=== PATIENT | male | born 1990 | race Two or more races ===

== ENCOUNTER 2017-06-26 04:31 | Emergency (ER) | payer MEDICAID ==
[~2017-06-26] VITALS: Ht 172.7 cm; Wt 63.5 kg
[2017-06-26] MEDS ORDERED: KETOROLAC TROMETH 60MG/2ML VIAL IM ONE (07:30)
[2017-06-26 08:04] VITALS: BP 106/66
== END 2017-06-26 08:10 | disposition home or self-care (01) ==
LOC: ER 04:31
DX: M54.5 Low back pain (principal); M54.2 Cervicalgia; M54.6 Pain in thoracic spine; M79.1 Myalgia; G89.29 Other chronic pain; F17.210 Nicotine dependence, cigarettes, uncomplicated; Z88.0 Allergy status to penicillin
CPT/HCPCS: 96372; 99283; J1885

== ENCOUNTER 2017-06-27 07:52 | Emergency (ER) | payer MEDICAID ==
[~2017-06-27] VITALS: Ht 172.7 cm; Wt 63.5 kg
[2017-06-27 08:00] VITALS: BP 112/59
== END 2017-06-27 09:30 | disposition home or self-care (01) ==
LOC: ER 07:55
DX: S61.411A Laceration without foreign body of right hand, initial encounter (principal); F17.210 Nicotine dependence, cigarettes, uncomplicated; W45.8XXA Other foreign body or object entering through skin, initial encounter; Y93.89 Activity, other specified; Y92.89 Other specified places as the place of occurrence of the external cause; Y99.8 Other external cause status

== ENCOUNTER 2018-02-22 08:36 | Emergency (ER) | payer MEDICAID ==
[~2018-02-22] VITALS: Ht 172.7 cm; Wt 70.3 kg
[2018-02-22 08:45] VITALS: BP 127/67
[2018-02-22] MEDS ORDERED: methylPREDNISolone SOD SUCC 125 MG/2 ML VL IM ONE (09:15)
== END 2018-02-22 09:49 | disposition home or self-care (01) ==
LOC: ER 08:37
DX: R21 Rash and other nonspecific skin eruption (principal); F17.210 Nicotine dependence, cigarettes, uncomplicated; F15.10 Other stimulant abuse, uncomplicated; Z88.0 Allergy status to penicillin
CPT/HCPCS: 96372; 99283; J2930

== ENCOUNTER 2018-02-28 02:37 | Emergency (ER) | payer MEDICAID ==
[~2018-02-28] VITALS: Ht 172.7 cm; Wt 65.8 kg
[2018-02-28 02:49] VITALS: BP 107/42
[2018-02-28] MEDS ORDERED: TETANUS-DIPTH-ACEL PERTUSSIS 0.5ML SYRG IM ONE (03:45)
== END 2018-02-28 03:57 | disposition home or self-care (01) ==
LOC: ER 02:38
DX: S60.312A Abrasion of left thumb, initial encounter (principal); W22.8XXA Striking against or struck by other objects, initial encounter; Y93.89 Activity, other specified; Y99.8 Other external cause status; Y92.89 Other specified places as the place of occurrence of the external cause
CPT/HCPCS: 90471; 90715

== ENCOUNTER 2018-03-27 10:49 | Emergency (ER) | payer MEDICAID ==
[~2018-03-27] VITALS: Ht 172.7 cm; Wt 74.8 kg
[2018-03-27 13:25] VITALS: BP 112/66
== END 2018-03-27 14:17 | disposition home or self-care (01) ==
LOC: ER 10:51
DX: J02.9 Acute pharyngitis, unspecified (principal); R21 Rash and other nonspecific skin eruption
CPT/HCPCS: 71046

== ENCOUNTER 2019-02-18 17:55 | Emergency (ER) | payer SELFPAY ==
[~2019-02-18] VITALS: Ht 172.7 cm; Wt 68.0 kg
[2019-02-18 19:00] VITALS: BP 138/75
[2019-02-18] MEDS ORDERED: TETANUS-DIPTH-ACEL PERTUSSIS 0.5ML SYRG IM ONE (21:45)
== END 2019-02-18 22:30 | disposition home or self-care (01) ==
LOC: ER 17:55
DX: S91.332A Puncture wound without foreign body, left foot, initial encounter (principal); S91.331A Puncture wound without foreign body, right foot, initial encounter; Z88.0 Allergy status to penicillin; W45.0XXA Nail entering through skin, initial encounter; Y93.89 Activity, other specified; Y92.89 Other specified places as the place of occurrence of the external cause; Y99.8 Other external cause status
CPT/HCPCS: 90471; 90715

== ENCOUNTER 2019-08-13 22:28 | Emergency (ER) | payer SELFPAY ==
[~2019-08-13] VITALS: Ht 172.7 cm; Wt 59.0 kg
[2019-08-13 22:53] VITALS: BP 113/62
== END 2019-08-14 02:24 | disposition left against medical advice (07) ==
LOC: ER 22:28
DX: J34.89 Other specified disorders of nose and nasal sinuses (principal); Z53.21 Procedure and treatment not carried out due to patient leaving prior to being seen by health care provider

== ENCOUNTER 2020-02-10 10:24 | Emergency (ER) | payer MEDICAID, OTHER ==
[~2020-02-10] VITALS: Ht 172.7 cm; Wt 63.5 kg
[2020-02-10 10:50] VITALS: BP 117/74
== END 2020-02-10 12:55 | disposition home or self-care (01) ==
LOC: ER 10:24
DX: L03.114 Cellulitis of left upper limb (principal); F17.210 Nicotine dependence, cigarettes, uncomplicated; Z88.0 Allergy status to penicillin

== ENCOUNTER 2020-03-29 16:33 | Emergency (ER) | payer OTHER ==
[~2020-03-29] VITALS: Ht 172.7 cm; Wt 63.5 kg
[2020-03-29 18:42] LABS: Basophils # (auto) 0 10 ^3/uL (0-0.2); Basophils % (auto) 0.4 % (0.0-2.0); Eosinophils # (auto) 0.1 10 ^3/uL (0-0.8); Eosinophils % (auto) 0.9 % (0.0-7.0); Hematocrit 43.7 % (41.0-53.0); Lymphocytes # (auto) 1.4 10 ^3/uL (0.4-5.4); Lymphocytes % (auto) 14.9 % (10.0-50.0); Mean Corpuscular Hemoglobin 31.1 pg (28.0-32.0); Mean Corpuscular Hgb Conc. 34.3 g/dL (32.0-36.0); Mean Corpuscular Volume 90.7 fL (80.0-100.0); Monocytes # (auto) 0.6 10 ^3/uL (0-1.3); Monocytes % (auto) 6.1 % (0.0-12.0); Neutrophils # (auto) 7.1 10 ^3/uL (1.6-8.6); Neutrophils % (auto) 77.7 % (37.0-80.0); Nucleated Red Blood Cells % 0.1 %; Platelet Count (auto) 205 10^3/uL (140-450); Red Blood Cells 4.81 10^6/uL (4.5-5.90); Red Cell Distribution Width 13.1 % (11.8-14.3); White Blood Cell 9.1 10^3/uL (4.4-10.8)
[2020-03-29 18:58] LABS: Albumin 3.9 g/dL (3.4-5.0); Calcium 8.9 mg/dL (8.5-10.1)
[2020-03-29 19:00] LABS: BUN/Creatinine Ratio 14.1
[2020-03-29 19:03] LABS: Bilirubin, Total 0.7 mg/dL (0.2-1.0); Total Protein 7.4 g/dL (6.4-8.2)
[2020-03-29 19:38] VITALS: BP 102/60
[2020-03-29] MEDS ORDERED: ONDANSETRON ODT 4 MG TAB PO ONE (20:00)
== END 2020-03-29 19:45 | disposition home or self-care (01) ==
LOC: ER 16:33
DX: K52.9 Noninfective gastroenteritis and colitis, unspecified (principal); F19.10 Other psychoactive substance abuse, uncomplicated; F17.210 Nicotine dependence, cigarettes, uncomplicated; F12.10 Cannabis abuse, uncomplicated; F15.10 Other stimulant abuse, uncomplicated; Z88.0 Allergy status to penicillin
CPT/HCPCS: 36415; 80053; 80320; 85025

== ENCOUNTER 2020-05-21 01:28 | Emergency (ER) | payer OTHER ==
[~2020-05-21] VITALS: Ht 172.7 cm; Wt 65.8 kg
[2020-05-21 06:12] VITALS: BP 140/76
== END 2020-05-21 06:39 | disposition home or self-care (01) ==
LOC: ER 01:30
DX: S70.921D Unspecified superficial injury of right thigh, subsequent encounter (principal); F15.10 Other stimulant abuse, uncomplicated; F12.10 Cannabis abuse, uncomplicated; F17.200 Nicotine dependence, unspecified, uncomplicated; F17.210 Nicotine dependence, cigarettes, uncomplicated; Z48.01 Encounter for change or removal of surgical wound dressing; Z59.0 Homelessness; Z88.0 Allergy status to penicillin; X58.XXXD Exposure to other specified factors, subsequent encounter

== ENCOUNTER 2020-05-25 23:55 | Emergency (ER) | payer OTHER ==
[~2020-05-25] VITALS: Ht 172.7 cm; Wt 72.6 kg
[2020-05-26 00:06] VITALS: BP 104/69
== END 2020-05-26 06:08 | disposition home or self-care (01) ==
LOC: ER 23:55
DX: F12.10 Cannabis abuse, uncomplicated (principal); F15.10 Other stimulant abuse, uncomplicated; Z48.00 Encounter for change or removal of nonsurgical wound dressing; F17.210 Nicotine dependence, cigarettes, uncomplicated; Z88.0 Allergy status to penicillin

== ENCOUNTER 2020-06-19 02:16 | Emergency (ER) | payer OTHER ==
[~2020-06-19] VITALS: Ht 172.7 cm; Wt 68.0 kg
[2020-06-19] MEDS ORDERED: KETOROLAC TROMETH 60MG/2ML VIAL IM ONE (07:45)
[2020-06-19 07:49] VITALS: BP 107/58
== END 2020-06-19 07:58 | disposition home or self-care (01) ==
LOC: ER 02:20
DX: S22.42XA Multiple fractures of ribs, left side, initial encounter for closed fracture (principal); F17.210 Nicotine dependence, cigarettes, uncomplicated; Z88.0 Allergy status to penicillin; W22.8XXA Striking against or struck by other objects, initial encounter; Y93.02 Activity, running; Y92.89 Other specified places as the place of occurrence of the external cause; Y99.8 Other external cause status
CPT/HCPCS: 71101; 96372; 99283; J1885

== ENCOUNTER 2021-10-27 14:09 | Emergency (ER) | payer MEDICAID, OTHER ==
[~2021-10-27] VITALS: Ht 172.7 cm; Wt 70.0 kg
[2021-10-27 14:46] VITALS: BP 115/69
== END 2021-10-27 16:17 | disposition home or self-care (01) ==
LOC: ER 14:09
DX: L55.0 Sunburn of first degree (principal); F17.210 Nicotine dependence, cigarettes, uncomplicated; Z59.00 Homelessness unspecified; Z88.0 Allergy status to penicillin

== ENCOUNTER 2021-12-14 21:02 | Emergency (ER) | payer MEDICAID ==
[~2021-12-14] VITALS: Ht 172.7 cm; Wt 145.0 kg
[2021-12-15 01:17] VITALS: BP 131/89
[2021-12-16] MEDS ORDERED: ALBU108A5 IN (08:25)
== END 2021-12-15 01:18 | disposition home or self-care (01) ==
LOC: ER 21:02
DX: F17.210 Nicotine dependence, cigarettes, uncomplicated (principal); Z59.00 Homelessness unspecified; Z20.822 Contact with and (suspected) exposure to COVID-19; Z88.0 Allergy status to penicillin
CPT/HCPCS: 36415; 87426

== ENCOUNTER 2021-12-16 06:00 | Emergency (ER) | payer MEDICAID ==
[~2021-12-16] VITALS: Ht 172.7 cm; Wt 63.8 kg
[2021-12-16 07:45] VITALS: BP 116/72
[2021-12-16] MEDS ORDERED: IPRATROPIUM BROM 0.5 MG/2.5ML INH SOL NEB ONE (08:00)
[2021-12-16] MEDS ORDERED: ALBUTEROL SULF 2.5 MG/0.5ML(0.5%) NEB SOLN NEB ONE (08:00)
[2021-12-16] MEDS ORDERED: ALBU108A5 IN (08:25)
== END 2021-12-16 08:33 | disposition home or self-care (01) ==
LOC: ER 06:00
DX: J98.01 Acute bronchospasm (principal)
CPT/HCPCS: 94640; 99284; J7644

== ENCOUNTER 2022-02-22 04:38 | Emergency (ER) | payer MEDICAID ==
[~2022-02-22] VITALS: Ht 172.7 cm; Wt 63.7 kg
[~2022-02-22 04:38] MED LIST: ALBU108A5 IN
[2022-02-22 05:05] LABS: Basophils # (auto) 0.1 10 ^3/uL (0-0.2); Eosinophils # (auto) 0.1 10 ^3/uL (0-0.8); Hematocrit 44.5 % (41.0-53.0); Hemoglobin 14.5 g/dL (13.5-17.5); Lymphocytes # (auto) 2.1 10 ^3/uL (0.4-5.4); Lymphocytes % (auto) 31.1 % (10.0-50.0); Mean Corpuscular Hemoglobin 29.2 pg (28.0-32.0); Mean Corpuscular Hgb Conc. 32.4 g/dL (32.0-36.0); Mean Corpuscular Volume 89.9 fL (80.0-100.0); Monocytes # (auto) 0.7 10 ^3/uL (0-1.3); Monocytes % (auto) 10.5 % (0.0-12.0); Neutrophils # (auto) 3.8 10 ^3/uL (1.6-8.6); Neutrophils % (auto) 55.4 % (37.0-80.0); Nucleated Red Blood Cells % 0.1 %; Red Blood Cells 4.95 10^6/uL (4.5-5.90); Red Cell Distribution Width 14.3 % (11.8-14.3); White Blood Cell 6.9 10^3/uL (4.4-10.8)
[2022-02-22 05:16] LABS: Albumin 3.7 g/dL (3.4-5.0); BUN/Creatinine Ratio 16.9; Calcium 8.9 mg/dL (8.5-10.1); Potassium 4.1 mmol/L (3.5-5.1)
[2022-02-22 05:20] LABS: Bilirubin, Total 0.2 mg/dL (0.2-1.0)
[2022-02-22] MEDS ORDERED: ASPirin 325 MG TAB PO ONE (07:15)
[2022-02-22 08:15] VITALS: BP 115/64
== END 2022-02-22 08:28 | disposition home or self-care (01) ==
LOC: ER 04:39
DX: R07.89 Other chest pain (principal); Z88.0 Allergy status to penicillin; F17.210 Nicotine dependence, cigarettes, uncomplicated; Z59.00 Homelessness unspecified
CPT/HCPCS: 36415; 80053; 83880; 84484; 85025; 93005

== ENCOUNTER 2022-03-19 05:13 | Emergency (ER) | payer MEDICAID ==
[~2022-03-19] VITALS: Ht 172.7 cm; Wt 68.5 kg
[2022-03-19 05:28] VITALS: BP 118/65
[2022-03-21 11:29] LABS: Hepatitis B Surface Antibody Positive (Negative)
== END 2022-03-19 07:55 | disposition home or self-care (01) ==
LOC: ER 05:13
DX: T75.89XA Other specified effects of external causes, initial encounter (principal); Z59.00 Homelessness unspecified; Z88.0 Allergy status to penicillin; X58.XXXA Exposure to other specified factors, initial encounter; Y93.89 Activity, other specified; Y92.89 Other specified places as the place of occurrence of the external cause; Y99.8 Other external cause status
CPT/HCPCS: 36415; 86703; 86706; 86803; 87340

== ENCOUNTER 2022-03-26 07:08 | Emergency (ER) | payer MEDICAID ==
[~2022-03-26] VITALS: Ht 172.7 cm; Wt 66.7 kg
[2022-03-26 07:15] VITALS: BP 119/80
[2022-03-26] MEDS ORDERED: AZIT500T66 PO (07:40)
[2022-03-26] MEDS ORDERED: PRED20TA2 PO (07:40)
== END 2022-03-26 07:59 | disposition home or self-care (01) ==
LOC: ER 07:08
DX: J03.90 Acute tonsillitis, unspecified (principal); F17.210 Nicotine dependence, cigarettes, uncomplicated; Z00.00 Encounter for general adult medical examination without abnormal findings; Z88.0 Allergy status to penicillin; Z79.899 Other long term (current) drug therapy; Z59.00 Homelessness unspecified

== ENCOUNTER 2024-06-19 14:26 | Emergency (ER) | payer MEDICAID ==
[~2024-06-19] VITALS: Ht 172.7 cm; Wt 64.3 kg
[~2024-06-19 14:26] MED LIST changes: +AZIT500T66 PO; +PRED20TA2 PO
[2024-06-19 15:07] VITALS: BP 121/74; PULSE 95; RESP 16; TEMP 99.2; O2SAT 99
--- NOTE | 2024-06-19 15:07 | ED.PDOC ---
Musculoskeletal HPI Comments 33-year-old male presents for a possible ankle fracture. Reports he twisted his ankle two months ago on uneven pavement Still able to bear weight Denies previous surgeries to the ankle Denies redness or swelling around the ankle Denies fever chills night sweats nausea vomiting Chief Complaint: Upper Extremity Time Seen by MD: 15:06 Primary Care Provider: NONE Reviewed Notes: Nurses Notes, Medications, Allergies Allergies: Coded Allergies: Penicillins (Verified Allergy, Unknown, 02/18/19) Home Meds Active Scripts Prednisone (Prednisone) 20 Mg Tab, 60 MG PO DAILY, #15 MG Prov:AMILCAR REDDY 03/26/22 Azithromycin (Azithromycin) 500 Mg Tab, 1 TAB PO DAILY, #5 TAB Prov:AMILCAR REDDY 03/26/22 Albuterol Sulfate (Albuterol Sulfate Hfa) 108 Mcg/Act Aer, 108 MCG IN TID, #90 AER Prov:AMILCAR REDDY 12/16/21 Information Source: Patient Mode of Arrival: Ambulatory Past Medical History PAST MEDICAL HISTORY: Denies Surgical History: Denies all surgeries Family History Family History: Reviewed,noncontributory to illness Social History Smoker: Cigarettes, Less Than 1 Pack/Day Alcohol: Occasionally Drugs: Denies Drug Use Lives In: Homeless All Other Systems: Reviewed and Negative (PER HPI) Physical Exam General Appearance: No Apparent Distress, Normal HEENT: Normal ENT Inspection, Pharynx Normal, TMs Normal Neck: Full Range of Motion, Non-Tender, Normal, Normal Inspection Respiratory: Chest Non-Tender, Lungs Clear, No Accessory Muscle Use, No Respiratory Distress, Normal Breath Sounds Cardiovascular: No Murmur, No Gallop, Regular Rate/Rhythm Breast Exam: Deferred Gastrointestinal: No Organomegaly, Non Tender, No Pulsatile Mass, Normal Bowel Sounds, Soft Genitalia: Deferred Pelvic: Deferred Rectal: Deferred Extremities: No calf tenderness, Normal capillary refill, Normal inspection, No rmal range of motion, Non-tender, No pedal edema Musculoskeletal : Location: Right Extremity Location: Ankle (Mild swelling to the lateral malleolus. Dorsiflexion plantar flexion strong. DP 2+. Cap refill less than 3 seconds) Apperance: Normal Neurologic: Alert, director of content marketing II-XII nml as Tested, No Motor Deficits, Normal Affect, Normal Mood, No Sensory Deficits Cerebellar Function: Normal Reflexes: Normal Skin: Dry, Normal Color, Warm Lymphatic: No Adenopathy Was a procedure done? Was a procedure done?: No Differential Diagnosis EXT Differential Diagnosis: Sprain X-Ray, Labs, Meds, VS Vital Signs Date Time Temp Pulse Resp B/P (MAP) Pulse Ox O2 Delivery O2 Flow Rate FiO2 06/19/24 15:07 95 16 99 Room Air 06/19/24 15:07 99.2 95 16 121/74 (90) 99 99.2 06/19/24 14:51 99.2 95 16 121/74 (90) 99 99.2 X-Ray, Labs, Meds, VS Comment Pt declined XRAY at this time. Presentation most consistent with Ankle Sprain. Patient does not currently demonstrate complications of sprain such as compartment syndrome, arterial or nerve injury. Differentials considered but not limited to: sprain, fracture, achilles tendon rupture The joint itself is non-irritable with ROM and there is no overlying redness and warmth to suggest injection. The Achilles and dorsiflexion tendon are non-tender and extension is intact. Disposition: Discharge. Supportive bracing provided. Patient was placed in an air-splint, WBAT. RICE. Strict return precautions and instructions to follow up with primary MD within 24-48 hours for further evaluation. May benefit from additional imaging such as stress views or MRI. Time of 1ST Reevaluation: 15:00 Reevaluation 1ST: Improved Patient Education/Counseling: Diagnosis, Treatment Family Education/Counseling: Diagnosis, Treatment Departure 1 Departure Time of Disposition: 15:06 Impression: Primary Impression: Ankle sprain Qualified Codes: S93.401A - Sprain of unspecified ligament of right ankle, initial encounter Disposition: HOME / SELF CARE / HOMELESS Condition: Stable Discharged With: Self Critical Care Note Critical Care Time?: No Stability Stability form required: No Heart Score Heart Score: Heart Score Response (Comments) Value History N/A 0 EKG N/A 0 Age N/A 0 Risk Factors N/A 0 Troponin N/A 0 Total 0 DIRK ORTEGA NP June 19, 2024 15:07
== END 2024-06-19 15:07 | disposition home or self-care (01) ==
LOC: ER 14:34
DX: S93.492A Sprain of other ligament of left ankle, initial encounter (principal); F17.210 Nicotine dependence, cigarettes, uncomplicated; Z88.0 Allergy status to penicillin; X58.XXXA Exposure to other specified factors, initial encounter; Y93.89 Activity, other specified; Y92.89 Other specified places as the place of occurrence of the external cause; Y99.8 Other external cause status

== ENCOUNTER 2024-06-21 18:09 | Emergency (ER) | payer MEDICAID ==
[~2024-06-21] VITALS: Ht 172.7 cm; Wt 62.3 kg
[2024-06-21 20:25] VITALS: BP 122/68; PULSE 96; RESP 18; TEMP 98.4; O2SAT 97
[2024-06-21] MEDS ORDERED: ERY05OO OP (20:59)
--- NOTE | 2024-06-21 20:59 | ED.PDOC ---
Eye-HPI HPI Comments Pt presents to ED with c/c of left eye redness and drainage x1 day., Then spread to his right eye Green drainage noted to inner canthus. Denies fevers, chills, nausea, vomiting, vision changes, sore throat, chest pain, shortness breath, difficulty breathing. Chief Complaint: Eye Problem Time Seen by MD: 18:25 Primary Care Provider: NONE Reviewed Notes: Nurses Notes, Medications, Allergies Allergies: Coded Allergies: Penicillins (Verified Allergy, Unknown, 02/18/19) Home Meds Active Scripts Erythromycin (Erythromycin) 5 Mg/Gm Oin, 1 MG OP 6XD for 9 Days, #3.5 GRAMS Prov:DONATO MIKE 06/21/24 Prednisone (Prednisone) 20 Mg Tab, 60 MG PO DAILY, #15 MG Prov:AMILCAR REDDY 03/26/22 Azithromycin (Azithromycin) 500 Mg Tab, 1 TAB PO DAILY, #5 TAB Prov:AMILCAR REDDY 03/26/22 Albuterol Sulfate (Albuterol Sulfate Hfa) 108 Mcg/Act Aer, 108 MCG IN TID, #90 AER Prov:AMILCAR REDDY 12/16/21 Information Source: Patient Mode of Arrival: Ambulatory Past Medical History PAST MEDICAL HISTORY: Denies Surgical History: Denies all surgeries Family History Family History: Reviewed,noncontributory to illness Social History Smoker: Cigarettes, Less Than 1 Pack/Day Alcohol: Occasionally Drugs: Denies Drug Use Lives In: Homeless Constitutional: denies: chills, diaphoresis, fatigue, fever, malaise, sweats, weakness, others EENTM: reports: ear drainage, eye redness; denies: blurred vision, double vision, ear bleeding, ear discharge, ear pain, ear ringing, eye pain, hearing loss, mouth pain, mouth swelling, nasal discharge, nose bleeding, nose congestion, nose pain, photophobia, tearing, throat pain, throat swelling, voice changes, others Respiratory: denies: cough, hemoptysis, orthopnea, SOB at rest, shortness of breath, SOB with excertion, stridor, wheezing, others Cardiovascular: denies: chest pain, dizzy spells, diaphoresis, Dyspnea on exertion, edema, irregular heart beat, left arm pain, lightheadedness, pa lpitations, PND, syncope, others Gastrointestinal: denies: abdomen distended, abdominal pain, blood streaked bowels, constipated, diarrhea, dysphagia, difficulty swallowing, hematemesis, melena, nausea, poor appetite, poor fluid intake, rectal bleeding, rectal pain, vomiting, others Genitourinary: denies: burning, dysuria, flank pain, frequency, hematuria, incontinence, penile discharge, penile sore, pain, testicle pain, testicle swelling, urgency, others Neurological: denies: dizziness, fainting, headache, left sided numbness, left sided weakness, numbness, paresthesia, pre-existing deficit, right sided numbness, right sided weakness, seizure, speech problems, tingling, tremors, weakness, others Musculoskeletal: denies: back pain, gout, joint pain, joint swelling, muscle pain, muscle stiffness, neck pain, others Integumetry: denies: bruises, change in color, change in hair/nails, dryness, laceration, lesions, lumps, rash, wounds, others Allergic/Immunocompromised: denies: Difficulty Healing, Frequent Infections, Hives, Itching, others Hematologic/Lymphatic: denies: anemia, blood clots, easy bleeding, easy br uising, swollen glands, others Endocrine: denies: excessive hunger, excessive sweating, excessive thirst, excessive urination, flushing, intolerance to cold, intolerance to heat, unexplained weight gain, unexplained weight loss, others Psychiatric: denies: anxiety, bipolar disorder, depression, hopeless, panic disorder, schizophrenia, sleepless, suicidal, others Physical Exam General Appearance: No Apparent Distress, Normal HEENT: Pharynx Normal, TMs Normal, Other (Bilateral eye conjunctival hyperemia with green thick drainage) Neck: Full Range of Motion, Non-Tender Respiratory: Lungs Clear, No Respiratory Distress, Normal Breath Sounds Cardiovascular: No Edema, No JVD, No Murmur, No Gallop, Normal Peripheral Pulses, Regular Rate/Rhythm Breast Exam: Deferred Gastrointestinal: No Organomegaly, Non Tender, No Pulsatile Mass, Normal Bowel Sounds, Soft Genitalia: Deferred Pelvic: Deferred Rectal: Deferred Extremities: Normal capillary refill, Normal inspection, Normal range of motion, Non-tender, No pedal edema Musculoskeletal : Apperance: Normal Neurologic: Alert, records technician II-XII nml as Tested, No Motor Deficits, Normal Affect, Normal Mood, No Sensory Deficits Cerebellar Function: Normal Reflexes: Normal Skin: Dry, Normal Color, Warm Lymphatic: No Adenopathy Was a procedure done? Was a procedure done?: No EENT DIFF Eye: Allergic, Bacterial, Chlamydial, Viral, Corneal Abrasion, Foreign Body-Conjunctiva, Foreign Body-Corneal, Foreign Body-Intraocular, Orbital Cellulits, Periorbital Cellulits X-Ray, Labs, Meds, VS Vital Signs Date Time Temp Pulse Resp B/P (MAP) Pulse Ox O2 Delivery O2 Flow Rate FiO2 06/21/24 20:25 96 18 97 Room Air 06/21/24 20:25 98.4 96 19 122/68 (86) 97 98.4 06/21/24 18:24 98.4 99 18 107/77 (87) 97 98.4 Current Medications Medications (Trade) Dose Ordered Sig/Gary Route Start Time Stop Time Status Last Admin Dexamethasone Sodium Phosphate (Decadron Injection) 10 mg ONCE ONCE IM 06/21/24 20:45 06/21/24 20:46 DC 06/21/24 21:06 Erythromycin 1 applic ONCE ONCE OP 06/21/24 20:45 06/21/24 20:46 DC 06/21/24 21:06 X-Ray, Labs, Meds, VS Comment Likely bacterial script trial of erythromycin ophthalmic advised to take med ications as prescribed side effects discuss he is to avoid scratching and touching his eyes that is highly contagious. He is to follow up with his PCP in 2 days ER return precautions given patient indicates understanding agrees with discharge plan of care. Time of 1ST Reevaluation: 19:40 Reevaluation 1ST: Unchanged Time of 2ND Reevaluation: 20:54 Reevaluation 2ND: Improved Patient Education/Counseling: Diagnosis, Treatment, Prognosis, Need For Follow Up Family Education/Counseling: No Family Present Departure 1 Departure Time of Disposition: 20:54 Impression: Primary Impression: Acute conjunctivitis, bilateral Qualified Codes: H10.33 - Unspecified acute conjunctivitis, bilateral Disposition: 01 HOME / SELF CARE / HOMELESS Condition: Stable e-Prescriptions Erythromycin (Erythromycin) 5 Mg/Gm Oin 1 MG OP 6XD for 9 Days, #3.5 GRAMS Prov: DONATO MIKE 06/21/24 Discharged With: Self Critical Care Note Critical Care Time?: No Stability Stability form required: No DONATO MIKE June 21, 2024 20:59
[2024-06-21] MEDS: ERYTHROMY OPTH OINT 5mg/gm 1gm or 3.5gm tube OP ONE (21:06)
[2024-06-21] MEDS: DexAMETHasone SOD PHOS 10MG/1ML VIAL INJ IM ONE (21:06)
== END 2024-06-21 21:54 | disposition home or self-care (01) ==
LOC: ER 18:16
DX: H10.33 Unspecified acute conjunctivitis, bilateral (principal); F17.210 Nicotine dependence, cigarettes, uncomplicated; Z79.52 Long term (current) use of systemic steroids; Z79.899 Other long term (current) drug therapy; Z59.00 Homelessness unspecified; Z88.0 Allergy status to penicillin
CPT/HCPCS: 96372; 99283; J1100

== ENCOUNTER 2024-08-06 12:31 | Emergency (ER) | payer MEDICAID ==
[~2024-08-06] VITALS: Ht 172.7 cm; Wt 61.5 kg
[2024-08-06 12:34] VITALS: BP 140/81; PULSE 94; RESP 16; TEMP 97.9; O2SAT 97
--- NOTE | 2024-08-06 13:30 | ED.PDOC ---
General HPI Comments 33 year old male with no past medical history presents to the emergency department with a chief complaint of penile discharge onset 1 day. Patient states he began experiencing penile discharge with foul odor 1day ago, following sexual activity. Patient is concerned for possible STD. No other symptoms or modifying factors present at this time. Denies fevers chills night sweats Denies pelvic pain Denies nausea vomiting diarrhea Denies dysuria urgency frequency Denies history of UTI Denies blood in the urine or semen Denies recent instruments/toys and urethra Denies current tobacco use Denies family history of prostate issues Chief Complaint: Penile Discharge Time Seen by MD: 13:15 Primary Care Provider: NONE Reviewed notes: Nurses Notes, Medications, Allergies Allergies: Coded Allergies: Penicillins (Verified Allergy, Unknown, 02/18/19) Home Meds Active Scripts Prednisone (Prednisone) 20 Mg Tab, 60 MG PO DAILY, #15 MG Prov:AMILCAR REDDY 03/26/22 Azithromycin (Azithromycin) 500 Mg Tab, 1 TAB PO DAILY, #5 TAB Prov:AMILCAR REDDY 03/26/22 Albuterol Sulfate (Albuterol Sulfate Hfa) 108 Mcg/Act Aer, 108 MCG IN TID, #90 AER Prov:AMILCAR REDDY 12/16/21 Information Source: Patient Mode of Arrival: Ambulatory Severity: Moderate Timing: Days Duration: Since onset Prehospital treatment: None Onset: Following sexual contact Symptoms: Penile discharge, Other Past Medical History PAST MEDICAL HISTORY: Denies Surgical History: Denies all surgeries Family History Family History: Reviewed,noncontributory to illness Social History Smoker: Cigarettes, Less Than 1 Pack/Day Alcohol: Occasionally Drugs: Denies Drug Use Lives In: Homeless All Other Systems: Reviewed and Negative (as per HPI) Physical Exam General Appearance: Normal HEENT: Normal ENT Inspection, Pharynx Normal, TMs Normal Neck: Full Range of Motion, Non-Tender, Normal, Normal Inspection Respiratory: Chest Non-Tender, Lungs Clear, No Accessory Muscle Use, No Respiratory Distress, Normal Breath Sounds Cardiovascular: No Edema, No JVD, No Murmur, No Gallop, Normal Peripheral Pulses, Regular Rate/Rhythm Breast Exam: Deferred Gastrointestinal: No Organomegaly, Non Tender, No Pulsatile Mass, Normal Bowel Sounds, Soft, Other (CVA tenderness negative bilaterally) Genitalia: Normal Pelvic: Deferred Rectal: Deferred Extremities: No calf tenderness, Normal capillary refill, Normal inspection, Normal range of motion, Non-tender, No pedal edema Musculoskeletal : Apperance: Normal Neurologic: Alert, industrial hygiene technician II-XII nml as Tested, No Motor Deficits, Normal Affect, Normal Mood, No Sensory Deficits Cerebellar Function: Normal Reflexes: Normal Skin: Dry, Normal Color, Warm Lymphatic: No Adenopathy Was a procedure done? Was a procedure done?: No Differential Diagnosis Kidney stone (Female): Other Penile/Scrotal: Epidiymitis, Foreign Body, Prostatitis, STD, UTI X-Ray, Labs, Meds, VS Vital Signs Date Time Temp Pulse Resp B/P (MAP) Pulse Ox O2 Delivery O2 Flow Rate FiO2 08/06/24 12:34 97.9 94 16 140/81 (100) 97 97.9 Lab Test 08/06/24 13:40 Range/Units Urine Color Yellow Yellow Urine Clarity Clear Clear Urine pH 6.5 5.0-9.0 Urine Specific [place] 1.024 1.001-1.035 Urine Protein Trace H Negative Urine Ketones Negative Negative Urine Blood Negative Negative /uL Urine Nitrite Negative Negative Urine Bilirubin Negative Negative Urine Urobilinogen Normal Negative mg/dL Urine Leukocyte Esterase Negative Negative /uL Urine RBC 2 0 - 3 /hpf Urine Microscopic WBC 1 0-3 /HPF Urine Squamous Epithelial Cells Few <5 /hpf Urine Bacteria Few H None Seen /hpf Urine Sperm Present None Seen /hpf Urine Glucose Normal Normal mg/dL Chlamydia trachomatis (ROSLYN) Pending Neisseria gonorrhoeae (ROSLYN) Pending X-Ray, Labs, Meds, VS Comment 33 year old male with no past medical history presents to the emergency department with a chief complaint of penile discharge onset 1 day. Patient arrives alert and oriented, ABC's intact, afebrile, vital signs stable, saturating well in room air labs were ordered. Urinalysis was ordered to rule out UTI or hematuria. chlamydia/GC amplification Labs in the ED showed showed no signs of UTI. Patient declined empiric treatment at this time. Patient was advised to follow up on lab results within 48-72 hours and abstain from any sexual activity until that time and patient verbalized understanding to plan patient was informed that it is his responsibility to follow up on his labs Discussed the importance of safe sex practices. The patient verbalized understanding Additional MDM Review of External, Non-ED records: External records reviewed. Discussion with independent historian (EMS, family) history obtained from the patient/parents (if applicable) at bedside Chronic conditions affecting care: None Social determinants of health affecting care: ETOH occasionally, cigarettes, homeless Consideration of admission (observation or admission): I considered escalation of care to admission for this patient, however given the reassuring workup, the patient is safe for outpatient management. Time of 1ST Reevaluation: 13:45 Reevaluation 1ST: Improved Patient Education/Counseling: Diagnosis, Treatment Family Education/Counseling: No Family Present SEPSIS Sepsis Screen Date sepsis recognized/suspect: Aug 06, 2024 Time Sepsis recognized/suspect: 1234 Recent Procedure: No On Antibiotic Therapy: No Respiratory Rate >20: No Heart Rate >90: Yes Temp<36 C (96.8 F) or >38.3 C: No SBP <90 or MAP <65 mmHG: No New Acute Mental Status Change: No Is the patient on CPAP, BIPAP,: No Physician Orders Chlamydia/Gc Amplification (08/06/24 13:21) Vital Signs Date Time Temp Pulse Resp B/P (MAP) Pulse Ox O2 Delivery O2 Flow Rate FiO2 08/06/24 12:34 97.9 94 16 140/81 (100) 97 97.9 Departure 1 Departure Time of Disposition: 14:26 Impression: Primary Impression: Fishy urine odor Disposition: 01 HOME / SELF CARE / HOMELESS Condition: Stable Discharged With: Self Critical Care Note Critical Care Time?: No Stability Stability form required: No Heart Score Heart Score: Heart Score Response (Comments) Value History N/A 0 EKG N/A 0 Age N/A 0 Risk Factors N/A 0 Troponin N/A 0 Total 0 I personally scribed for DIRK ORTEGA DIRECTOR OF WOMEN'S SERVICES ([email or web address]) on 08/06/24 at 13:30. Electronically submitted by Leora Jewell ([email or web address]). I personally scribed for DIRK ORTEGA DIRECTOR OF WOMEN'S SERVICES ([email or web address]) on 08/06/24 at 13:31. Electronically submitted by Leora Jewell ([email or web address]). DIRK ORTEGA NP Aug 06, 2024 13:30
[2024-08-06 14:00] LABS: Urine Protein, UAD TRACE (Negative)
[2024-08-08 04:06] LABS: Chlamydia Trachomatis, NAA Negative (Negative); Neisseria gonorrhoeae, NAA Negative (Negative)
== END 2024-08-06 14:47 | disposition home or self-care (01) ==
LOC: ER 12:31
DX: R82.90 Unspecified abnormal findings in urine (principal); F17.210 Nicotine dependence, cigarettes, uncomplicated; Z88.0 Allergy status to penicillin
CPT/HCPCS: 81001

== ENCOUNTER 2024-08-14 20:02 | Emergency (ER) | payer MEDICAID ==
[~2024-08-14] VITALS: Ht 170.2 cm; Wt 63.0 kg
[2024-08-14 20:02] VITALS: BP 138/80; PULSE 101; RESP 14; TEMP 98.8; O2SAT 97
== END 2024-08-14 21:29 | disposition left against medical advice (07) ==
LOC: ER 20:02
DX: Z11.3 Encounter for screening for infections with a predominantly sexual mode of transmission (principal); Z53.21 Procedure and treatment not carried out due to patient leaving prior to being seen by health care provider

== ENCOUNTER 2024-10-29 01:05 | Emergency (ER) | payer MEDICAID ==
[~2024-10-29] VITALS: Ht 172.7 cm; Wt 63.1 kg
[2024-10-29 01:08] VITALS: BP 114/73; PULSE 80; RESP 20; TEMP 97.9; O2SAT 96
[2024-10-29] MEDS ORDERED: ACET500T58 PO (01:49)
--- NOTE | 2024-10-29 01:49 | ED.PDOC ---
HPI (NEURO) HPI Comments 33-year-old male presents to ER with complaints of headache x3 hours. Patient reports he has been experiencing 3/10 frontal headache x3 hours. Denies any pain and denies use of medications for current symptoms. Patient states he is concerned because he recently came in contact with other people with tested positive for COVID-19. Denies fever, body aches, chills, nausea/vomiting, dizziness, head injury, numbness/tingling, runny nose/recent illness, cough, shortness of breath or any further symptoms/complaints Chief Complaint: Headache Time Seen by MD: 01:14 Primary Care Provider: UNKNOWN Reviewed Notes: Nurses Notes, Medications, Allergies Information Source: Patient Mode of Arrival: Ambulatory Past Medical History PAST MEDICAL HISTORY: Denies Surgical History: Denies all surgeries Family History Family History: Unknown Social History Smoker: Cigarettes, Less Than 1 Pack/Day Alcohol: Occasionally Drugs: Denies Drug Use Lives In: Homeless Constitutional: denies: chills, diaphoresis, fatigue, fever, malaise, sweats, weakness, others EENTM: denies: blurred vision, double vision, ear bleeding, ear discharge, ear drainage, ear pain, ear ringing, eye pain, eye redness, hearing loss, mouth pain, mouth swelling, nasal discharge, nose bleeding, nose congestion, nose pain, photophobia, tearing, throat pain, throat swelling, voice changes, others Respiratory: denies: cough, hemoptysis, orthopnea, SOB at rest, shortness of breath, SOB with excertion, stridor, wheezing, others Cardiovascular: denies: chest pain, dizzy spells, diaphoresis, Dyspnea on exertion, edema, irregular heart beat, left arm pain, lightheadedness, palpitations, PND, syncope, others Gastrointestinal: denies: abdomen distended, abdominal pain, blood streaked bowels, constipated, diarrhea, dysphagia, difficulty swallowing, hematemesis, melena, nausea, poor appetite, poor fluid intake, rectal bleeding, rectal pain, vomiting, others Genitourinary: denies: burning, dysuria, flank pain, frequency, hematuria, incontinence, penile discharge, penile sore, pain, testicle pain, testicle swelling, urgency, others Neurological: reports: others (As stated in HPI) Musculoskeletal: denies: back pain, gout, joint pain, joint swelling, muscle pain, muscle stiffness, neck pain, others Integumetry: denies: bruises, change in color, change in hair/nails, dryness, laceration, lesions, lumps, rash, wounds, others Allergic/Immunocompromised: denies: Difficulty Healing, Frequent Infections, Hives, Itching, others Hematologic/Lymphatic: denies: anemia, blood clots, easy bleeding, easy bruising, swollen glands, others Endocrine: denies: excessive hunger, excessive sweating, excessive thirst, excessive urination, flushing, intolerance to cold, intolerance to heat, unexplained weight gain, unexplained weight loss, others Psychiatric: denies: anxiety, bipolar disorder, depression, hopeless, panic disorder, schizophrenia, sleepless, suicidal, others Physical Exam General Appearance: No Apparent Distress HEENT: Normal ENT Inspection, PERRL/EOMI, Pharynx Normal, TMs Normal Neck: Full Range of Motion, Non-Tender, Normal Respiratory: Chest Non-Tender, Lungs Clear, No Accessory Muscle Use, No Resp iratory Distress, Normal Breath Sounds Cardiovascular: No Murmur, No Gallop, Regular Rate/Rhythm Breast Exam: Deferred Gastrointestinal: NOT DONE Genitalia: Deferred Pelvic: Deferred Rectal: Deferred Extremities: Normal capillary refill, Normal range of motion Neurologic: Alert, assistant professor of english II-XII nml as Tested, No Motor Deficits, Normal Affect, Normal Mood, No Sensory Deficits Cerebellar Function: Normal Reflexes: Normal Skin: Dry, Normal Color, Warm Peripheral Pulses: 2+ carotid (R), 2+ carotid (L), 2+ Radial (R), 2+ Radial (L), 2+ Brachial (R), 2+ Brachial (L) Lymphatic: No Adenopathy Was a procedure done? Was a procedure done?: No Sedation Sedation?: No Differential Diagnosis (SZ) Headache: Migraine, Subarachnoid Hemorrhage, Subdural Hemorrhage, Mass Lesion, Other (COVID-19) X-Ray, Labs, Meds, VS Vital Signs Date Time Temp Pulse Resp B/P (MAP) Pulse Ox O2 Delivery O2 Flow Rate FiO2 10/29/24 01:08 97.9 80 20 114/73 96 97.9 Lab Test 10/29/24 02:00 Range/Units SARS-CoV-2 Antigen (Rapid) Negative NEGATIVE Swab results reviewed-negative Patient had improvement in symptoms and in no distress prior to discharge Advised to drink plenty of fluids Advised to follow up with PCP in 1-2 days Patient verbalized understanding and agreeable with current plan of care Advised to return to ER immediately if symptoms worsen Time of 1ST Reevaluation: 01:34 Reevaluation 1ST: N/A Patient Education/Counseling: Diagnosis, Treatment, Prognosis, Need For Follow Up Family Education/Counseling: No Family Present Departure 1 Departure Time of Disposition: 01:47 Impression: Primary Impression: Frontal headache Additional Impression: Exposure to COVID-19 virus Disposition: 01 HOME / SELF CARE / HOMELESS Condition: Stable e-Prescriptions Acetaminophen (Acetaminophen) 500 Mg Tab 500 MG PO Q4HPRN, #30 TAB 0 Refills Prov: AUGUSTO MARROQUIN 10/29/24 Discharged With: Self Critical Care Note Critical Care Time?: No Stability Stability form required: No Heart Score Heart Score: Heart Score Response (Comments) Value History N/A 0 EKG N/A 0 Age N/A 0 Risk Factors N/A 0 Troponin N/A 0 Total 0 AUGUSTO MARROQUIN Oct 29, 2024 01:49
[2024-10-29 02:34] LABS: COVID19 ANTIGEN SOFIA FIA NEGATIVE (NEGATIVE)
== END 2024-10-29 03:10 | disposition home or self-care (01) ==
LOC: ER 01:09
DX: R51.9 Headache, unspecified (principal); Z20.822 Contact with and (suspected) exposure to COVID-19; F17.210 Nicotine dependence, cigarettes, uncomplicated
CPT/HCPCS: 36415; 87426

== ENCOUNTER 2024-11-15 09:29 | Emergency (ER) | payer MEDICAID ==
[~2024-11-15] VITALS: Ht 172.7 cm; Wt 63.9 kg
[~2024-11-15 09:29] MED LIST changes: +ACET500T58 PO
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
[2024-11-15] MEDS ORDERED: KETOROLAC TROMETH 30 MG/ML 1ML VIAL IV ONE (10:00)
[2024-11-15] MEDS ORDERED: ONDANSETRON ODT 4 MG TAB PO ONE (10:00)
[2024-11-15] MEDS: SODIUM CHLORIDE 0.9% 1,000 ML IV ONE (10:20)
[2024-11-15 10:29] VITALS: BP 111/75; PULSE 91; RESP 18; TEMP 97.8; O2SAT 98
--- NOTE | 2024-11-15 10:50 | DVH ---
CHEST RADIOGRAPH Indication: ro sob Technique: Frontal and lateral view of the chest was obtained Comparison: L RIB X RAY on DOS: 06/19/20 FINDINGS: Lines and Tubes: None Lungs: Clear Pleura: No effusion. No pneumothorax. Cardiomediastinal contours: Unremarkable Bones: Unremarkable IMPRESSION: No evidence of acute disease.
== END 2024-11-15 11:00 | disposition left against medical advice (07) ==
LOC: ER 09:29
DX: T20.00XA Burn of unspecified degree of head, face, and neck, unspecified site, initial encounter (principal); J06.9 Acute upper respiratory infection, unspecified; R53.1 Weakness; F10.90 Alcohol use, unspecified, uncomplicated; F17.210 Nicotine dependence, cigarettes, uncomplicated; F19.10 Other psychoactive substance abuse, uncomplicated; Z59.00 Homelessness unspecified; X08.8XXA Exposure to other specified smoke, fire and flames, initial encounter; Y93.89 Activity, other specified; Y92.89 Other specified places as the place of occurrence of the external cause; Y99.8 Other external cause status; Y90.9 Presence of alcohol in blood, level not specified
CPT/HCPCS: 71046; 96360; 99283; J7030